=== PATIENT | male | born 1960 | race Caucasian/White ===

== ENCOUNTER 2016-09-26 00:53 | Emergency (ER) | payer OTHER ==
[~2016-09-26] VITALS: Ht 180.3 cm; Wt 87.9 kg
[2016-09-26 01:44] LABS: HEMATOCRIT 43.1 % (38.0-50.0); MCH 30.6 PG (29.0-34.0); MCHC 35.3 G/DL (30.0-36.0); MCV 86.7 FL (86-99); MEAN PLAT.VOLUME 10.2 uM^3 (9.0-12.4); PLATELET COUNT 227 K/uL (156-360); RBC DIS.WIDTH-SD 40.1 % (39-53); RED BLOOD COUNT 4.97 M/uL (4.00-5.50)
[2016-09-26 01:53] LABS: CHLORIDE 106 mEq/L (99-109); POTASSIUM 4.2 mEq/L (3.7-5.4); SODIUM 141 mEq/L (136-147)
[2016-09-26 01:55] LABS: GLUCOSE 104 mg/dL (70-99)
[2016-09-26 01:56] LABS: ANION GAP 12 MEQ/L (2-14)
[2016-09-26 01:59] LABS: GFR ESTIMATE (CALCULATED) > 59 mL/min/
[2016-09-26 02:00] LABS: UREA NITROGEN (BUN) 25 mg/dL (9-23)
[2016-09-26 02:17] LABS: ADD MIUA? YES; BILIRUBIN NEGATIVE; BLOOD LARGE; COLOR YELLOW ((YELLOW)); GLUCOSE (STRIP) NEGATIVE; KETONES NEGATIVE; LEUKOCYTES NEGATIVE; NITRITE NEGATIVE; PH, URINE 6.5 (5-8); PROTEIN (STRIP) 30; SPECIFIC GRAVITY 1.024 (1.000-1.030); UROBILINOGEN 0.2 MG/DL (0.2-1.0)
[2016-09-26] MEDS ORDERED: ZITHROMAX Z-PA250 MG PO (02:52)
[2016-09-26] MEDS ORDERED: TOBREX5 ML BOTH EYES (02:52)
[2016-09-26] MEDS ORDERED: FLOMAX0.4 MG PO (03:07)
[2016-09-26] MEDS ORDERED: ZOFRAN ODT4 MG PO (03:07)
[2016-09-26] MEDS ORDERED: PERCOCET 5/31 TABLET PO (03:07)
[2016-09-26 03:23] VITALS: BP 148/85
[2016-09-26 03:52] LABS: RED BLOOD CELLS TNTC /HPF (0-5)
[2016-09-26 03:53] LABS: BACTERIA NONE SEEN; CASTS NONE SEEN /LPF; CRYSTALS NONE SEEN; EPITHELIAL CELLS RARE; MUCUS NONE SEEN; UCUL ADDED? NO; WHITE BLOOD CELLS RARE /HPF (0-5)
== END 2016-09-26 03:24 | disposition home or self-care (01) ==
LOC: EME 00:53 → EXP 00:53
DX: N20.1 Calculus of ureter (principal); Z87.442 Personal history of urinary calculi; Z87.891 Personal history of nicotine dependence
CPT/HCPCS: 74176; 80048; 81003; 85027; 99281; 99285; J1885; J2270; J2405; J7030